=== PATIENT | female | born 1995 | race Caucasian/White ===

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

== ENCOUNTER 2018-05-20 18:08 | Outpatient (CLI) | payer MEDICAID ==
[2018-05-20] MEDS ORDERED: LACTATED RINGERS 1,000 ML IV ONE (19:40)
[2018-05-20 19:57] LABS: Hematocrit 34.1 % (30.3-42.9); Hemoglobin 11.3 gm/dl (10.1-14.3); Mean Corpuscular HGB Conc 33 % (30-34); Mean Corpuscular Volume 82 fl (79-97); Platelet Count 286 K/mm3 (140-440); Red Blood Count 4.14 M/mm3 (3.65-5.03); Red Cell Distribution Width 14.5 % (13.2-15.2)
[2018-05-20 20:10] LABS: Bilirubin,Urine NEG (Negative); Blood,Urine NEG (Negative); Color,Urine Yellow (Yellow); Mucus,Urine FEW /HPF; Urobilinogen,Urine < 2.0 mg/dL (<2.0)
[2018-05-20 20:29] LABS: Alanine Aminotransferase 98 units/L (7-56); Uric Acid 3.5 mg/dL (3.5-7.6)
[2018-05-20 21:01] VITALS: BP 114/74
== END 2018-05-20 21:15 | disposition home or self-care (01) ==
LOC: TRG 18:08
PROVIDERS: ATTEND Obstetrics & Gynecology
DX: O47.03 False labor before 37 completed weeks of gestation, third trimester (principal); Z3A.33 33 weeks gestation of pregnancy
CPT/HCPCS: 36415; 59025; 81001; 82565; 83615; 84450; 84460; 84550; 85027

== ENCOUNTER 2018-06-25 09:44 | Inpatient (IN) | payer MEDICAID ==
--- NOTE | 2018-06-24 16:55 | History and Physical Report ---
History of Present Illness Date of examination: 06/25/18 Chief complaint: Scheduled Section History of present illness: Pt is a 23 year old female CARMEN 07/02/18 at 39w0d with h/o one previous who presents for repeat . 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 She has no obstetric complaints today. She has had care at [facility] 14 wks complicated by late entry to care, first trimester bleeding, and h/o atypical HELLP syndrome. She is GBS negative. Past History Past Medical History: other (Atypical HELLP Syndrome ) Past Surgical History: section (2016) Family/Genetic History: hypertension Social history: no significant social history - Obstetrical History Expected Date of Delivery: 07/02/18 Actual Gestation: 39 Week(s) 0 Day(s) : 2 Para: 1 Hx # Term Pregnancies: 1 Number of Pregnancies: 0 Spontaneous Abortions: 0 Induced : 0 Number of Living Children: 1 Medications and Allergies Allergies Allergy/AdvReac Type Severity Reaction Status Date / Time No Known Allergies Allergy Verified 11/20/16 17:34 Home Medications Medication Instructions Recorded Confirmed Last Taken Type Adult Low Dose Aspirin EC 81 tab PO DAILY 06/25/18 06/25/18 06/24/18 10:00 History 1 Multivitamin Tablet 1 tab PO DAILY 06/25/18 06/25/18 06/24/18 10:00 History 1 Review of Systems All systems: negative - Physical Exam Breasts: Positive: deferred Cardiovascular: Regular rate Lungs: Positive: Clear to auscultation Abdomen: Positive: soft (obese, gravid ) Genitourinary (Female): Positive: normal external genitalia Uterus: Positive: enlarged (gravid) Extremities: Positive: edema (trace) - Obstetrical FHR: auscultation normal Uterine Contraction Monitor Mode: External Uterine Contraction Pattern: Absent Uterine Tone Measurement Phase: Resting Results Result Diagrams: 06/25/18 10:08 06/25/18 10:08 All other labs normal. Assessment and Plan A: IUP at 39w0d Previous x 1 H/o atypical HELLP Syndrome in prior Obesity P: Plan to proceed with repeat section and other indicated procedures.
[~2018-06-25 09:44] MED LIST: ANCEF/STERILE WATER 2 GM/20 ML 2 GM/20 ML SYRINGE IV NR; BICITRA PO NR; PEPCID IV NR; PITOCin/NS 20 UNIT/1000ML DRIP 20 UNITS/1,000 ML BAG IV SCH; REGLAN IV NR
[2018-06-25 10:34] LABS: Basophils # (Auto) 0.1 K/mm3 (0.0-0.1); Basophils % (Auto) 0.8 % (0.0-1.8); Eosinophils # (Auto) 0.2 K/mm3 (0.0-0.4); Eosinophils % (Auto) 2.1 % (0.0-4.3); Hematocrit 35.7 % (30.3-42.9); Hemoglobin 11.8 gm/dl (10.1-14.3); Lymphocytes # (Auto) 1.7 K/mm3 (1.2-5.4); Lymphocytes % (Auto) 21.8 % (13.4-35.0); Mean Corpuscular HGB Conc 33 % (30-34); Mean Corpuscular Volume 81 fl (79-97); Monocytes # (Auto) 0.5 K/mm3 (0.0-0.8); Monocytes % (Auto) 6.3 % (0.0-7.3); Platelet Count 290 K/mm3 (140-440); Red Cell Distribution Width 16.3 % (13.2-15.2)
[2018-06-25 11:02] LABS: Uric Acid 4.3 mg/dL (3.5-7.6)
[2018-06-25] MEDS ORDERED: NUBAIN IV PRN (11:03)
[2018-06-25] MEDS ORDERED: NARCAN 0.4 MG/1 ML IV PRN ×2 (11:03→15:58)
[2018-06-25] MEDS ORDERED: ZOFRAN IV PRN ×2 (11:03→15:58)
[2018-06-25] MEDS ORDERED: BENADRYL IV PRN (11:03)
[2018-06-25] MEDS ORDERED: PHENERGAN PO PRN (11:03)
[2018-06-25] MEDS ORDERED: MORPHINE IV PRN (11:03)
[2018-06-25] MEDS ORDERED: PHENERGAN PR PRN (11:03)
[2018-06-25] MEDS ORDERED: SENSORCAINE/DEXTR 0.75-8.25% INFILTRATI ONE (11:12)
[2018-06-25] MEDS: LACTATED RINGERS 1,000 ML IV SCH ×2 (11:12→11:15)
[2018-06-25] MEDS ORDERED: SUBLIMAZE ONE (11:12)
[2018-06-25] MEDS ORDERED: WATER FOR IRRIG STERILE IR ONE (11:45)
[2018-06-25] MEDS ORDERED: NACL 0.9% IR ONE (11:45)
[2018-06-25] MEDS ORDERED: SODIUM CHLORIDE FLUSH SYRINGE 10 ML IV NR ×2 (12:00→15:58)
[2018-06-25] MEDS ORDERED: fentaNYL-BUPIV 2 MCG/ML-0.125% 200 MCG/100 ML BAG EPIDURAL SCH (12:00)
--- NOTE | 2018-06-25 12:57 | Procedure Note ---
OB Delivery Note - Delivery Date of Delivery: 06/25/18 Surgeon: AGNES ACKERMAN Estimated blood loss: 500cc - Section Preop diagnosis: repeat Postop diagnosis: same section procedure: section, repeat low transverse Disposition: PACU Complications: none Narrative: Please see operative report. - A at 1 minute: 7 at 5 minutes: 9 Gender: Female (2762g (6lb 1.5 oz) @ 1208 pm)
--- NOTE | 2018-06-25 13:00 | Operative Report ---
Operative Report Operative Report: Date of procedure: June 25, 2018 Preoperative diagnosis: 1) IUP at 39w0d 2) Previous x 1 3) Obesity Postoperative diagnosis: Same Procedure: Repeat low transverse section Surgeon: Jagurti Lindsey M.D. Anesthesia: Spinal Findings: 1) Viable female , Apgars 7 and 9, weight 2762g, (6 lb 1.5 oz) in cephalic presentation 2) Normal-appearing uterus ovaries and tubes Estimated blood loss: 500 mL IV fluids: 2000 mL Urine output: 100 mL, clear at the end of the procedure Drains: Harris to gravity Specimens: None Complications: None. Counts correct x 3 Disposition: Stable to PACU Indication for procedure: The patient is a 23-year-old female 2 para 1001 at 39 weeks w ith a history of one previous section who presents for repeat section. Operation in detail: After the risks, benefits, alternatives and complications were explained to the patient she gave informed consent for the procedure. She was subsequently taken to the operating room where spinal anesthesia was noted to be adequate. She was subsequently placed in the dorsal supine position with leftward tilt and prepped and draped in a normal sterile fashion. heart tones were noted to be in the 120s prior to incision. A timeout was performed. A Pfannenstiel skin incision was made with the knife and carried down to the layer of the fascia with the Bovie. The fascia was incised in the midline and the fascial incision was extended bilaterally with the Bovie. Attention was then turned to the superior aspect of the incision which was grasped with two Kochers, tented up, and dissected off the rectus muscles. Attention was then turned to the inferior aspect of the incision which was grasped with two Kochers, tented up and dissected off the rectus muscles. The rectus muscles were then in the midline and partially transected for adequate visualization. The peritoneum was then entered bluntly. The peritoneal incision was extended with good visualization of the bladder. The peritoneal incision was then stretched. An Ambrocio self-retaining retractor was placed for visualization. The bladder blade was placed. The vesicouterine peritoneum was grasped with smooth pickups and incised with Metzenbaum scissors. Metzenbaum scissors were used to extend the incision bilaterally. The bladder flap was then created digitally and the bladder blade was replaced. A transverse incision was made in the lower uterine segment with a knife and extended bilaterally with the bandage scissors. The head was delivered without difficulty followed by shoulders and body. was bulb suctioned at delivery. The cord was clamped and cut and the was handed to NICU staff in attendance. Cord blood was collected. The placenta was then delivered manually. The uterus was then cleared of all clots and debris. The hysterotomy was then reapproximated with 0 Vicryl in a running locked fashion. A second layer of the same suture was used in imbricating fashion. The hysterotomy was inspected and hemostasis was noted. The Ambrocio self-retaining retractor was removed. The gutters were irrigated and cleared of all clots and debris. The hysterotomy was again inspected and noted to be hemostatic. Surgicel was placed over the hysterotomy. The peritoneum was reapproximated with 2-0 Vicryl in a running fashion incorporating the rectus muscles. The fascia was reapproximated with 0 Vicryl in a running fashion. The subcutaneous tissue was reapproximated with 3- 0 Vicryl in a running fashion. The skin was reapproximated with 4-0 Vicryl in a running fashion. The incision was then covered with steri strips and a pressure dressing. The procedure was then ended. The patient tolerated the procedure well and was taken to the PACU in stable condition. All instrument, lap, and needle counts were correct 3.
[2018-06-25] MEDS: DILAUDID IV PRN ×3 (14:05→23:49)
[2018-06-25 14:18] LABS: Bacteria,Urine 1+ /HPF (Negative); Bilirubin,Urine NEG (Negative); Blood,Urine NEG (Negative); Color,Urine Yellow (Yellow); Hyaline Casts,Urine 1 /LPF; Protein,Urine <15 mg/dL mg/dL (Negative); Urobilinogen,Urine < 2.0 mg/dL (<2.0)
[2018-06-25] MEDS ORDERED: ANCEF/NS 1 GM/50 ML 1 GM/50 ML BAG IV SCH (15:58)
[2018-06-25] MEDS ORDERED: TYLENOL PO PRN (15:58)
[2018-06-25] MEDS ORDERED: TUCKS PAD TP PRN (15:58)
[2018-06-25] MEDS ORDERED: LANSINOH TP PRN (15:58)
[2018-06-25] MEDS ORDERED: PITOCin/NS 20 UNIT/1000ML DRIP 20 UNITS/1,000 ML BAG IV SCH (15:58)
[2018-06-25] MEDS ORDERED: D5LR 1,000 ML IV SCH (15:58)
[2018-06-25] MEDS: TORADOL IV PRN ×2 (16:07→21:26)
[2018-06-25] MEDS: ANCEF/NS 1 GM/50 ML 1 GM/50 ML BAG IV SCH (23:49)
[2018-06-26 00:50] LABS: Hematocrit 30.9 % (30.3-42.9); Hemoglobin 10.4 gm/dl (10.1-14.3); Mean Corpuscular HGB Conc 34 % (30-34); Mean Corpuscular Volume 81 fl (79-97); Platelet Count 247 K/mm3 (140-440); Red Cell Distribution Width 16.4 % (13.2-15.2)
[2018-06-26 01:02] LABS: Alanine Aminotransferase 19 units/L (7-56)
[2018-06-26 01:17] LABS: Uric Acid 4.2 mg/dL (3.5-7.6)
[2018-06-26] MEDS: TORADOL IV PRN (03:10)
[2018-06-26] MEDS: PERCOCET 5/325 PO PRN ×4 (05:49→22:25)
[2018-06-26] MEDS: FEOSOL PO SCH (10:32)
[2018-06-26] MEDS: IBUPROFEN PO PRN ×3 (10:33→22:26)
[2018-06-26] MEDS: ANCEF/NS 1 GM/50 ML 1 GM/50 ML BAG IV SCH (10:36)
[2018-06-26] MEDS ORDERED: BOOSTRIX IM ONE (13:02)
[2018-06-26] MEDS ORDERED: M-M-R II VACCINE SUB-Q ONE (13:02)
--- NOTE | 2018-06-26 13:08 | Progress Note ---
Assessment and Plan A/P POD 1 repeat csec routing Postop care Subjective - Subjective Date of service: 06/26/18 Principal diagnosis: s/p csec Patient reports: appetite normal, voiding normally, pain well controlled, flatus, ambulating normally [place]: doing well Objective - Vital Signs Latest vital signs: Vital Signs Temp Pulse Resp BP BP Pulse Ox 06/26/18 07:51 97.7 F 90 24 105/57 95 06/26/18 05:49 18 06/26/18 04:47 98.7 F 18 108/68 06/26/18 04:40 98.7 F 96 H 18 108/68 95 06/26/18 03:10 18 06/26/18 00:07 97.6 F 16 104/57 06/26/18 00:05 97.9 F 90 16 104/57 95 06/25/18 23:49 18 06/25/18 21:26 18 06/25/18 21:09 98.5 F 18 105/63 06/25/18 21:05 98.5 F 93 H 18 105/63 97 06/25/18 20:13 18 06/25/18 18:45 99.1 F 107 H 18 113/65 06/25/18 18:40 116 H 95 06/25/18 14:48 97.4 F L 96 H 20 122/83 97 06/25/18 14:10 97.8 F 75 20 113/69 98 06/25/18 14:00 71 23 106/59 98 06/25/18 13:45 97.5 F L 82 20 119/99 99 06/25/18 13:30 72 21 106/62 99 06/25/18 13:15 69 18 102/55 97 06/25/18 13:08 97.6 F 88 16 106/56 97 Intake and Output 06/25/18 06/26/18 06/26/18 23:59 07:59 15:59 Intake Total 0 360 50 Output Total 400 1050 550 Balance -400 -690 -500 Intake: IV 50 ANCEF/NS 1 GM/50 ML 1 gm 50 In 50 ml @ 100 mls/hr IV Q8H [facility] Rx#:[id number] Oral 0 Intake, Free Water 360 Output: Urine 400 1050 550 Indwelling Catheter 400 800 Void 250 550 Other: Total, Intake Amount 0 Total, Output Amount 400 250 550 # Voids Indwelling Catheter 400 Void 1 - Exam Breasts: Present: normal Cardiovascular: Present: Regular rate, Normal S1 Lungs: Present: Clear to auscultation, Normal air movement Abdomen: Present: normal appearance, soft, normal bowel sounds. Absent: distention, tenderness, guarding Vulva: both: normal Uterus: Present: normal, firm, fundal height below umbilicus. Absent: bogginess, tenderness Extremities: Present: normal Deep Tendon Reflex Grade: Normal +2 Incision: Present: normal, dry, intact - Labs Labs: Abnormal lab results 06/26/18 06/26/18 Range/Units 00:29 00:29 MCH 27 L (28-32) pg RDW 16.4 H (13.2-15.2) % Creatinine 0.5 L (0.7-1.2) mg/dL Lactate Dehydrogenase 204 H (91-180) units/L
[2018-06-26] MEDS: MILK OF MAGNESIA PO SCH (20:01)
[2018-06-27] MEDS: IBUPROFEN PO PRN ×3 (05:50→19:34)
[2018-06-27] MEDS: PERCOCET 5/325 PO PRN ×3 (05:50→19:33)
[2018-06-27] MEDS: MILK OF MAGNESIA PO SCH ×3 (08:15→22:24)
--- NOTE | 2018-06-27 08:55 | Progress Note ---
Assessment and Plan A: POD#2 s/p repeat section at term H/o atypical HELLP syndrome in prior , no evidence of this currently P: Routine postop care. Subjective - Subjective Date of service: 06/27/18 Principal diagnosis: s/p csec Interval history: No overnight events. Patient reports: appetite normal, voiding normally, pain well controlled, flatus, ambulating normally, no bowel movement : doing well Objective - Vital Signs Latest vital signs: Vital Signs Temp Pulse Resp BP BP Pulse Ox 06/27/18 00:50 98.4 F 91 H 18 99/59 06/26/18 16:23 98.3 F 99 H 20 100/66 94 Intake and Output 06/26/18 06/27/18 06/27/18 22:59 06:59 14:59 Intake Total 480 Balance 480 Intake: Intake, Free Water 480 Other: # Voids Void 2 - Exam Breasts: Present: deferred Cardiovascular: Present: Regular rate Lungs: Present: Clear to auscultation Abdomen: Present: soft, normal bowel sounds Uterus: Present: fundal height below umbilicus Extremities: Present: edema (1+) Incision: Present: dressed
[2018-06-28] MEDS: IBUPROFEN PO PRN ×2 (00:44→09:06)
[2018-06-28] MEDS: PERCOCET 5/325 PO PRN ×3 (00:44→09:06)
[2018-06-28] MEDS: FEOSOL PO SCH (09:06)
--- NOTE | 2018-06-28 11:55 | Progress Note ---
Assessment and Plan A: POD#3 s/p repeat section at term H/o atypical HELLP syndrome P: Discharge today with follow up appt next SatJuly 02, [address] Lindsey Subjective - Subjective Date of service: 06/28/18 Principal diagnosis: s/p csec Interval history: Pt reports isolated episode of dizziness but otherwise feels well and wants to go home. Patient reports: appetite normal, voiding normally, dizzy ambulation (once), pain well controlled, flatus, ambulating normally, no nauseated : doing well Objective - Vital Signs Latest vital signs: Vital Signs Temp Pulse Resp BP BP Pulse Ox 06/28/18 07:21 97.8 F 75 20 91/42 94 06/28/18 00:00 98.4 F 80 18 112/70 98 06/27/18 17:03 98.4 F 108 H 20 156/101 98 06/27/18 16:49 97.6 F 81 20 102/74 96 Intake and Output 06/27/18 06/28/18 06/28/18 22:59 06:59 14:59 Intake Total 240 Balance 240 Intake: Oral 240 Other: Total, Intake Amount 240 # Voids Void 1 - Exam Breasts: Present: deferred Cardiovascular: Present: Regular rate Lungs: Present: Clear to auscultation Abdomen: Present: soft (obese), normal bowel sounds Uterus: Present: fundal height below umbilicus Extremities: Present: edema (1+ ) Incision: Present: intact
--- NOTE | 2018-06-28 11:57 | Discharge Summary ---
Providers - Providers Date of Admission: 06/25/18 09:44 Date of discharge: 06/28/18 Attending physician: AGNES LINDSEY 06/26/18 13:43 Consult to Case Management [CONS] Routine Services Needed at Discharge: Census Taker Notified:: no Was contact made?: No Additional Physician Instructions: Infant hearing referred x 2 Primary care physician: AGNES LINDSEY Hospitalization Reason for admission: section Delivery: Procedure: section, repeat low transverse Procedure details: Please see delivery note. Incision: intact Other procedures: none complications: none Discharge diagnosis: IUP at term delivered [place] baby: female Hospital course: The patient was admitted for repeat section which she tolerated well. Her postoperative course was uncomplicated and on postoperative day #3 she met discharge criteria. She will follow-up in 1 week in the office of Dr. Lindsey. Condition at discharge: Stable Disposition: - TO HOME OR SELFCARE - Discharge Diagnoses (1) Term of female Status: Acute (2) Anemia Status: Acute Qualifiers: Anemia type: unspecified type Qualified Code(s): D64.9 - Anemia, unspecified (3) Obesity Status: Acute Qualifiers: Obesity type: unspecified obesity type Serious obesity comorbidity presence: without serious comorbidity Body mass index: BMI 36.0-36.9 Qualified Code(s): E66.9 - Obesity, unspecified; Z68.36 - Body mass index (BMI) 36.0-36.9, adult; Z68.36 - Body mass index (BMI) 36.0-36.9, adult Plan - Discharge Medications Prescriptions: Ferrous Sulfate [Feosol 325 MG tab] 325 mg PO BID #60 tablet Ibuprofen [Motrin] 800 mg PO Q8HR PRN #30 tablet PRN Reason: Pain, Moderate (4-6) oxyCODONE /ACETAMINOPHEN [Percocet 5/325] 1 tab PO Q6HR PRN #40 tablet PRN Reason: Pain - Provider Discharge Summary Activity: routine, no sex for 6 weeks, no heavy lifting 4 weeks, no strenuous exercise Diet: routine Instructions: routine Additional instructions: [] Smoking cessation referral if applicable(refer to patient education folder for contact #) [] Refer to [facility]'s [facility] Booklet Call your doctor immediately for: * Fever > 100.5 * Heavy vaginal bleeding ( >1 pad per hour) * Severe persistent headache * Shortness of breath * Reddened, hot, painful area to leg or breast * Drainage or odor from incision. * Keep incision clean and dry at all times and follow doctor's instructions regarding bathing/showering - Follow up plan Follow up: AGNES LINDSEY MD [Primary Care Provider] - 07/02/18 (Please call to schedule appt ) Forms: C Discharge Summary, Discharge Signature Page
[2018-06-28 16:12] VITALS: BP 117/77
== END 2018-06-28 16:25 | disposition home or self-care (01) | DRG 766 ==
LOC: APU 09:44 → OB 15:22
PROVIDERS: ADMIT Obstetrics & Gynecology; ATTEND Obstetrics & Gynecology
PROC: 10D00Z1 Extraction of Products of Conception, Low, Open Approach (ICD-10-PCS; principal; 2018-06-25)
PROC: 3E0234Z Introduction of Serum, Toxoid and Vaccine into Muscle, Percutaneous Approach (ICD-10-PCS; 2018-06-26)
DX: O34.211 Maternal care for low transverse scar from previous cesarean delivery (principal); Z3A.39 39 weeks gestation of pregnancy; Z37.0 Single live birth; E66.01 Morbid (severe) obesity due to excess calories; O99.214 Obesity complicating childbirth; Z82.49 Family history of ischemic heart disease and other diseases of the circulatory system; Z23 Encounter for immunization
CPT/HCPCS: 36415; 81001; 82565; 83615; 84450; 84460; 84550; 85025; 85027; 86850; 86900; 86901; G0378; A6250; J0690; J1170; J1885; J2405; J2590; J2765; J3010; J7120; J7121; Q0169